=== PATIENT | male | born 1995 | race Caucasian/White ===

== ENCOUNTER → 2017-07-31 | Outpatient (CLI) | payer OTHER ==
--- NOTE | 2017-07-31 10:06 | RAD ---
Scrotal ultrasound July 31, 2017 INDICATION: Right testicular swelling status post trauma 3 weeks ago. COMPARISON: None available. TECHNIQUE: Scrotal ultrasound was performed utilizing grayscale, color Doppler and spectral waveform analysis. FINDINGS: The right testicle measures 4.3 x 3.1 x 3.6 cm. The left testicle measures 4.0 x 3.0 x 2.5 cm. There is a moderate to large sized simple appearing right hydrocele. There is increased color Doppler involving the right testicle suggestive of hyperemia. However, comparison with contralateral testicle is not provided to assess a significant difference. The epididymis appears normal bilaterally. No suspicious mass is visualized. There is homogeneous echotexture of the testicles bilaterally. No varicocele is identified. Arterial and venous waveform is noted bilaterally at the time of imaging. IMPRESSION: 1. Suspected asymmetric hyperemia of the right testicle may be seen in setting of orchitis. No suspicious mass is visualized. 2. Perfusion is noted bilaterally at the time of imaging. Electronically signed by: Nathalia Vega MD (07/31/2017 10:03 AM) [id number]
== END | disposition home or self-care (01) ==
LOC: US 07:49
PROVIDERS: ATTEND Physician Assistant
DX: N50.89 Other specified disorders of the male genital organs (principal)
CPT/HCPCS: 76870